=== PATIENT | female | born 2000 | race Caucasian/White ===

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

== ENCOUNTER → 2021-04-18 16:14 | Outpatient (CLI) | payer OTHER, SELFPAY | PROVIDERS: PCP Pediatrics; Visit Provider Nurse Practitioner Family | DX: J02.9 Acute pharyngitis, unspecified (principal) | CPT/HCPCS: 87070 ==

== ENCOUNTER → 2021-04-27 14:07 | Outpatient (CLI) | payer OTHER, SELFPAY ==
[2021-04-27 16:01] LABS: COVID19 -Nasal RAPID Negative (Negative)
== END ==
PROVIDERS: PCP Pediatrics; Visit Provider Physician Assistant
DX: Z20.822 Contact with and (suspected) exposure to COVID-19 (principal)
CPT/HCPCS: 87635

== ENCOUNTER 2021-06-06 20:44 | Emergency (ER) | payer OTHER, SELFPAY ==
[2021-06-06 20:58] VITALS: BP 123/72; PULSE 104; RESP 17; TEMP 37.8; O2SAT 99; BMI 30.1
[2021-06-06 21:28] LABS: COVID19 -Nasal RAPID Negative (Negative)
[2021-06-06 21:37] LABS: Bacteria Urine Many (>30); Culture Indicated Urine Specimen Cultured; RBC Urine 0-1/HPF (0-5/HPF); Squamous Epithelial Cell Urine 0-1 /HPF (0-5/HPF); WBC Urine 1-5/HPF (0-5/HPF)
--- NOTE | 2021-06-06 22:00 | ED_ITS ---
HPI - General Adult General Chief complaint: Fever Stated complaint: back/pelvis/neck pain Time Seen by Provider: 06/06/21 20:51 Source: patient Mode of arrival: Ambulatory History of Present Illness HPI narrative: Patient is a 20-year-old otherwise healthy female who did have an exposure to COVID. Is vaccinated against COVID. Is here for evaluation of approximately 24 hours of upper back pain and neck pain and lower back pain. She states that her lower back pain as around her kidney area. She potentially has a urinary tract infection. No abdominal pain. Had fevers earlier. No skin rashes. No abdominal pain. No coughing. No shortness of breath. Related Data Home Medications Medication Instructions Recorded Confirmed desogestrel 0.15 mg-ethinyl 1 tab PO DAILY 12/14/18 04/29/21 estradiol 0.03 mg tablet (Isibloom) phentermine 15 mg capsule 15 mg PO DAILY 04/18/21 04/29/21 Previous Rx's Medication Instructions Recorded tramadol 50 mg tablet (Ultram) 50 mg PO Q8H PRN #7 tab 12/14/18 Allergies Allergy/AdvReac Type Severity Reaction Status Date / Time lactase [From Dairy Aid] Allergy Verified 06/06/21 21:00 Penicillins Allergy Rash Verified 06/06/21 21:00 Review of Systems Review of Systems ROS Unobtainable: All systems reviewed & are unremarkable except as noted in HPI and below Patient History Medical History Dysmenorrhea Surgical History No pertinent past surgical history Social History Smoking Status: Never smoker second hand exposure: No Smoking Status: Never smoker Alcohol type: other Substance Use Type: does not use Exam Initial Vital Signs Initial Vital Signs: Vital Signs Temperature 100.1 F H 06/06/21 20:58 Pulse Rate 104 H 06/06/21 20:58 Respiratory Rate 17 06/06/21 20:58 Blood Pressure 123/72 06/06/21 20:58 Pulse Oximetry 99 06/06/21 20:58 Const General: cooperative, healthy appearing, comfortable, well developed, No ill appearing and well hydrated HENNM Head: normal to inspection Chest Chest: normal inspection of the chest Resp Effort & Inspection: normal respiratory effort Auscultation: clear to auscultation bilaterally Cardio Rate: regular rate Rhythm: regular rhythm Skin General: no rashes or lesions noted Neuro General: patient alert, patient awake, patient oriented x3, no meningeal signs and no focal motor deficits Extrem General: normal to inspection and capillary refill normal Psych Appearance: grossly normal and well kempt Course Orders Ordered: ED Orders 06/06/21 21:00 COVID19 -Nasal swab/Pre-Proc Stat Urine Culture Stat Urine Microscopic Stat 06/06/21 22:40 Respiratory Panel (Film Array) Stat Discontinued Medications Ibuprofen (Ibuprofen 400 Mg Tablet) 800 mg PO NOW ONE Stop: 06/06/21 22:03 Last Admin: 06/06/21 22:38 Dose: 800 mg Documented by: MÓNICA Vital Signs Vital signs: Vital Signs - 8 hr 06/06/21 20:58 06/07/21 00:17 Temperature 100.1 F H Pulse Rate 104 H 62 Respiratory Rate 17 16 Blood Pressure 123/72 108/56 L Pulse Oximetry 99 99 Medical Decision Making Lab Data Labs: Lab Results 06/06/21 06/06/21 06/06/21 Range/Units 21:00 21:00 22:40 Urine RBC 0-1/hpf D (0-5/HPF) Urine WBC 1-5/hpf (0-5/HPF) Ur Squamous Epith Cells 0-1 /hpf (0-5/HPF) Urine Bacteria Many (>30) H (None) Ur Culture Indicated? Specimen cultured Chlamy pneumoniae PCR Not detected (Not Detect) Adenovirus (PCR) Not detected (Not Detect) B. pertussis DNA (PCR) Not detected (Not Detecte) B.parapertussis DNA PCR Not detected (Not Detecte) Coronavirus OC43 (PCR) Not detected (Not Detect) Coronavirus HKU1 (PCR) Not detected (Not Detect) Coronavirus 229E (PCR) Not detected (Not Detect) SARS-CoV-2 (PCR) Negative Not detected (Negative) Coronavirus NL63 (PCR) Not detected (Not Detect) Human Metapneumovir PCR Not detected (Not Detect) Influenza Type A (PCR) Not detected (Not Detect) Influenza Type B (PCR) Not detected (Not Detect) M. pneumoniae (PCR) Not detected (Not Detect) Parainfluenza 1 (PCR) Not detected (Not Detect) Parainfluenza 2 (PCR) Not detected (Not Detect) Parainfluenza 3 (PCR) Not detected (Not Detect) Parainfluenza 4 (PCR) Not detected (Not Detect) RSV (PCR) Not detected (Not Detect) Entero/Rhino (PCR) Not detected (Not Detect) Point of Care Testing Test Results Negative Rapid Strep A Negative Urine Dip Bedside Urine Glucose Negative Bedside Urine Bilirubin - Negative Bedside Urine Ketone - Negative Urine Specific [place] 1.015 Bedside Urine Occult Blood +/- Bedside Urine pH 6.0 Bedside Urine Protein - Negative Bedside Urine Urobilinogen - Negative Bedside Urine Nitrite - Negative Bedside Urine Leukocytes - Negative Esterase Point of care testing: Point of Care Testing Test Results Negative Rapid Strep A Negative Urine Dip Bedside Urine Glucose Negative Bedside Urine Bilirubin - Negative Bedside Urine Ketone - Negative Urine Specific [place] 1.015 Bedside Urine Occult Blood +/- Bedside Urine pH 6.0 Bedside Urine Protein - Negative Bedside Urine Urobilinogen - Negative Bedside Urine Nitrite - Negative Bedside Urine Leukocytes - Negative Esterase MDM Narrative Medical decision making narrative: Patient is well-appearing. Her urinalysis is not consistent with urinary tract infection. Her abdomen is not consistent with a intra-abdominal surgical pathology. She has no skin rash concerning for cellulitis. Low suspicion for kidney infection based on her urine sample as well. She has no shortness of breath and no cough. She is afebrile here. No sore throat. No sinus congestion. COVID is negative. Respiratory panel is negative. We did discuss the possibility of meningitis per feel this is very unlikely given her clinical presentation today. I did not recommend a lumbar puncture based on his clinical presentation. She does understand the lack of definitive diagnosis but there is no indication for any antibiotics. She was told she could take Tylenol or ibuprofen for fevers and body aches. She is given return precautions. She expressed understanding and agreement. Discharge Plan Departure Patient Disposition: Home Clinical Impression: Body aches Activity Restrictions/Additional Instructions: I recommend that you take Tylenol/ibuprofen for any fevers or body aches contact your primary doctor for a follow-up and return to the emergency department for any new or worsening symptoms. Prescriptions: No Action phentermine 15 mg capsule 15 mg PO DAILY 0RF Rx Instructions: must administer 2 hours after breakfast desogestrel-ethinyl estradiol [Isibloom] 0.15-0.03 mg tablet 1 tab PO DAILY 0RF tramadol [Ultram] 50 mg tablet 50 mg PO Q8H PRN (Reason: pain) Qty: 7 0RF Referrals: Olga Chaney ARNP [Primary Care Provider] -
[2021-06-06] MEDS: IBUPROFEN 400 MG TABLET 800 MG PO (22:38)
[2021-06-06 23:45] LABS: Adenovirus Not Detected (Not Detect); B. parapertussis Not Detected (Not Detecte); Bordetella pertussis Not Detected (Not Detecte); Chlamydophila pneumoniae Not Detected (Not Detect); Coronavirus 229E Not Detected (Not Detect); Coronavirus HKU1 Not Detected (Not Detect); Coronavirus NL 63 Not Detected (Not Detect); Coronavirus OC43 Not Detected (Not Detect); Human Metapneumovirus Not Detected (Not Detect); Human Rhinovirus/Enterovirus Not Detected (Not Detect); Influenza A Not Detected (Not Detect); Influenza B Not Detected (Not Detect); Mycoplasma pneumoniae Not Detected (Not Detect); Parainfluenza Virus 1 Not Detected (Not Detect); Parainfluenza Virus 2 Not Detected (Not Detect); Parainfluenza Virus 3 Not Detected (Not Detect); Parainfluenza Virus 4 Not Detected (Not Detect); Respiratory Syncytial Virus Not Detected (Not Detect); SARS- CoV-2 Not Detected (Not Detecte)
[2021-06-07 00:17] VITALS: BP 108/56; PULSE 62; RESP 16; O2SAT 99
== END 2021-06-07 00:20 | disposition home or self-care (01) ==
PROVIDERS: Emergency Provider Emergency Medicine; PCP Internal Medicine
DX: M54.6 Pain in thoracic spine (principal); M54.2 Cervicalgia; M54.50 Low back pain, unspecified; Z20.822 Contact with and (suspected) exposure to COVID-19
CPT/HCPCS: 81003; 81015; 81025; 87077; 87086; 87147; 87633; 87635; 87880; 99282; 99283; C9803

== ENCOUNTER 2021-07-16 21:56 | Emergency (ER) | payer OTHER, SELFPAY ==
[2021-07-16 22:05] VITALS: BP 123/74; PULSE 60; RESP 18; TEMP 36.6; O2SAT 99
--- NOTE | 2021-07-16 22:08 | ED.GENADULT ---
HPI - General Adult General Stated complaint: thinks she is bleeding s/p tonsilectomy Time Seen by Provider: 07/16/21 22:01 Source: patient Mode of arrival: Ambulatory History of Present Illness HPI narrative: 20-year-old female who 10 days ago had a tonsillectomy. She thought that she felt something weird in the back of her throat when she looked there appeared to be a blood clot on the left tonsil. Not actively bleeding. No problems breathing. Related Data Home Medications Medication Instructions Recorded Confirmed desogestrel 0.15 mg-ethinyl 1 tab PO DAILY 12/14/18 04/29/21 estradiol 0.03 mg tablet (Isibloom) phentermine 15 mg capsule 15 mg PO DAILY 04/18/21 04/29/21 Previous Rx's Medication Instructions Recorded tramadol 50 mg tablet (Ultram) 50 mg PO Q8H PRN #7 tab 12/14/18 Allergies Allergy/AdvReac Type Severity Reaction Status Date / Time lactase [From Dairy Aid] Allergy Verified 06/06/21 21:00 Penicillins Allergy Rash Verified 06/06/21 21:00 Review of Systems ENT Ears, Nose, Mouth, and Throat: Reports system reviewed and no additional complaints, except as documented Respiratory Respiratory: Reports system reviewed and no additional complaints, except as documented Hematologic/Lymphatic On Anticoagulants: No Patient History Medical History (Updated 07/16/21 @ 22:11 by Krishna Day DO) Dysmenorrhea Surgical History No pertinent past surgical history Social History Smoking Status: Never smoker second hand exposure: No Smoking Status: Never smoker Alcohol type: other Substance Use Type: does not use Exam Const General: cooperative and comfortable HENMT Head: normal to inspection Mouth: moist mucous membranes Throat: other (Small clot left tonsillar bed right tonsillar bed unremarkable) Resp Effort & Inspection: normal respiratory effort Cardio Rate: regular rate Skin General: no rashes or lesions noted Medical Decision Making MDM Narrative Medical decision making narrative: Patient does have a small clot in the left tonsillar bed however there is no active bleeding. The right tonsillar bed is unremarkable. No respiratory distress. Patient is well hydrated. She is at the point in time were we potentially could see bleeding however given the fact that there is a clot in place and there is no active bleeding there is no intervention required in the emergency department today. I did discuss this with her. She was given return precautions. She expressed understanding and agreement. Discharge Plan Departure Patient Disposition: Home Clinical Impression: Hematoma following procedure Activity Restrictions/Additional Instructions: There is a small blood clot on the left side where the tonsil was once located. I do recommend that for the next several days you eat a soft diet. You can also drink cool liquids. Follow all of the postoperative instructions given to you by the surgeon. Return to the emergency department for any new or worsening symptoms. Prescriptions: No Action phentermine 15 mg capsule 15 mg PO DAILY 0RF Rx Instructions: must administer 2 hours after breakfast desogestrel-ethinyl estradiol [Isibloom] 0.15-0.03 mg tablet 1 tab PO DAILY 0RF tramadol [Ultram] 50 mg tablet 50 mg PO Q8H PRN (Reason: pain) Qty: 7 0RF Referrals: Olga Chaney ARNP [Primary Care Provider] -
== END 2021-07-16 22:16 | disposition home or self-care (01) ==
PROVIDERS: Emergency Provider Emergency Medicine; PCP Internal Medicine
DX: J95.861 Postprocedural hematoma of a respiratory system organ or structure following other procedure (principal)
CPT/HCPCS: 99281

== ENCOUNTER → 2024-03-15 19:13 | Outpatient (ROUT) | payer OTHER, SELFPAY | PROVIDERS: PCP Internal Medicine; Visit Provider Dermatology | DX: B36.8 Other specified superficial mycoses (principal) | CPT/HCPCS: 87070; 87075; 87102; 87205 ==